=== PATIENT | male | born 1995 | race Caucasian/White ===

== ENCOUNTER 2021-07-08 05:31 | Outpatient (CLI) | payer BC ==
[~2021-07-08] VITALS: Ht 172.7 cm; Wt 84.1 kg
[2021-07-09] MEDS ORDERED: CETI10TA49 PO (10:03)
== END 2021-07-09 10:05 | disposition home or self-care (01) ==
LOC: PREOP 05:31
PROVIDERS: ATTEND Otolaryngology Otolaryngology/Facial Plastic Surgery
DX: Z01.818 Encounter for other preprocedural examination (principal)

== ENCOUNTER 2021-07-11 07:03 | Day surgery (SDC) | payer BC ==
[2021-07-11] VITALS (11 sets, daily range): BP systolic 135–157; BP diastolic 78–95
[~2021-07-11] VITALS: Ht 172.7 cm; Wt 84.1 kg
[~2021-07-11 07:03] MED LIST: CETI10TA49 PO
[2021-07-11] MEDS ORDERED: COCAINE HCL 4% 2 ML SYR ONE (07:17)
[2021-07-11] MEDS ORDERED: PHENYLEPHRINE 0.5% NASAL SPR (NEO-SYNEPHRINE) REG ONE (07:18)
[2021-07-11] MEDS ORDERED: LIDOCAINE/EPI 1%-1:200,000 (XYLOCAINE) 30 ML VIAL ONE (07:18)
[2021-07-11] MEDS ORDERED: MUPIROCIN 2% OINT 22 GM (BACTROBAN) TUBE ONE (07:18)
[2021-07-11] MEDS ORDERED: ROCURONIUM 10 MG/ML 5 ML SYRINGE IV ONE (07:20)
[2021-07-11] MEDS ORDERED: SEVOFLURANE (ULTANE) 15 ML INHAL SOLN ONE ×2 (07:20→08:48)
[2021-07-11] MEDS ORDERED: fentaNYL INJ 100 MCG/2 ML AMP ONE (07:20)
[2021-07-11] MEDS ORDERED: proPOfol 200 MG/20 ML (DIPRIVAN) VIAL IV ONE (07:20)
[2021-07-11] MEDS ORDERED: LIDOCAINE PF 2% 5 ML (XYLOCAINE) VIAL ONE (07:20)
[2021-07-11] MEDS ORDERED: ONDANSETRON 4 MG/2 ML (SDV) Z0FRAN ONE (07:20)
[2021-07-11] MEDS ORDERED: MIDAZOLAM 2 MG/2 ML (VERSED) VIAL ONE (07:20)
--- NOTE | 2021-07-11 07:25 | Progress Note-Pre Operative ---
Pre-Operative Progress Note H&P Reviewed The H&P was reviewed, patient examined and no changes noted. Date Seen by Provider: Jul 11, 2021 Time Seen by Provider: 07:25 Date H&P Reviewed: Jul 11, 2021 Time H&P Reviewed: 07:25 Pre-Operative Diagnosis: Deviated Nasal Septum, Bilat Hyper of INf Turbs. Rec Epistaxis SAMARA NUÑEZ MD Jul 11, 2021 07:25
[2021-07-11] MEDS: LACTATED RINGERS 1,000 ML IV PRN ×2 (07:29→09:24)
[2021-07-11] MEDS ORDERED: GLYCOPYRROLATE 0.2 MG/ML (ROBINUL) 2 ML VIAL ONE ×2 (08:39→08:48)
[2021-07-11] MEDS ORDERED: NEOSTIGMINE 3 MG/3 ML VIAL ONE (08:39)
--- NOTE | 2021-07-11 08:56 | Progress Note-Post Operative ---
Post-Operative Progess Note Surgeon (s)/Hand Coke Drawer (s) Surgeon SAMARA NUÑEZ MD Hand Coke Drawer n/a Pre-Operative Diagnosis Deviated Nasal Septum, Bilat Hyper of INf Turbs. Rec Epistaxis Post-Operative Diagnosis same Post-Op Procedure Note Date of Procedure: Jul 11, 2021 Name of Procedure Performed: Nasal Septoplasty, Bilateral Red of INf Turbs Description & Findings Description and Findings: n/a Anesthesia Type get Estimated Blood Loss minimal Packing none. Specimen(s) collected/removed nasal septum SAMARA NUÑEZ MD Jul 11, 2021 08:56
[2021-07-11] MEDS ORDERED: D5 1/2 NS W/KCL 20 MEQ/L 1,000 ML IV SCH (09:00)
[2021-07-11] MEDS ORDERED: ONDANSETRON 4 MG/2 ML (SDV) Z0FRAN IVP PRN (09:00)
[2021-07-11] MEDS ORDERED: HYDROmorphone 2 MG/ML VIAL (DILAUDID) IV ONE (09:00)
[2021-07-11] MEDS ORDERED: PROMETHAZINE INJ 25 MG/ML (PHENERGAN) AMP IVP PRN (09:00)
--- NOTE | 2021-07-11 09:14 | Anesthesia-General Post-Op ---
General Patient Condition Mental Status/LOC: Same as Preop Cardiovascular: Satisfactory Nausea/Vomiting: Absent Respiratory: Satisfactory Pain: Controlled Complications: Absent Post Op Complications Complications None Follow Up Care/Instructions Patient Instructions None needed. Anesthesia/Patient Condition Patient Condition Patient is doing well, no complaints, stable vital signs, no apparent adverse anesthesia problems. No complications reported per nursing. D/C home per [facility] Criteria: Yes ASHLEY ORELLANA CRNA Jul 11, 2021 09:14
[2021-07-11] MEDS: HYDROcodone/APAP 5 MG/325 MG (LORTAB) TAB PO PRN ×2 (10:10→11:00)
[2021-07-11] MEDS ORDERED: ACHD5005 PO (10:26)
[2021-07-11] MEDS ORDERED: AMOX-355 PO (10:26)
== END 2021-07-11 11:38 ==
LOC: SDC 07:03
PROVIDERS: ATTEND Otolaryngology Otolaryngology/Facial Plastic Surgery
DX: J34.2 Deviated nasal septum (principal); J34.89 Other specified disorders of nose and nasal sinuses; J34.3 Hypertrophy of nasal turbinates; J30.9 Allergic rhinitis, unspecified; R09.81 Nasal congestion; R09.82 Postnasal drip; K21.9 Gastro-esophageal reflux disease without esophagitis; Z79.899 Other long term (current) drug therapy
CPT/HCPCS: 87081